=== PATIENT | female | born 2005 | race African-American/Black ===

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

== ENCOUNTER 2024-04-04 15:38 | Emergency (ER) | payer OTHER ==
[~2024-04-04] VITALS: Ht 160 cm; Wt 46.7 kg
[2024-04-04 15:56] VITALS: BP 103/65; PULSE 73; RESP 18; TEMP 98.9; O2SAT 10
[2024-04-04 17:37] LABS: APPEARANCE,URINE CLEAR (CLEAR); BILIRUBIN,URINE NEGATIVE (NEGATIVE); BLOOD, URINE NEGATIVE (NEGATIVE); COLOR,URINE YELLOW (YELLOW); LEUKOCYTE ESTERASE ,URINE NEGATIVE (NEGATIVE); NITRITE, URINE NEGATIVE (NEGATIVE); PH,URINE 6.5 (5.0-9.0); PROTEIN,URINE NEGATIVE (NEGATIVE); UGLUCOSE NEGATIVE (NEGATIVE); UROBILINOGEN,URINE 0.2 EU/dL (0.2 - 1)
[2024-04-04] MEDS ORDERED: MICO2CRE70 VG (17:57)
[2024-04-04 18:05] VITALS: BP 104/60; PULSE 81; RESP 18; TEMP 98; O2SAT 100
== END 2024-04-04 18:05 | disposition home or self-care (01) ==
LOC: MED 15:38
DX: B37.31 Acute candidiasis of vulva and vagina (principal); Z79.899 Other long term (current) drug therapy
CPT/HCPCS: 81003; 81025; 87070; 87075; 87205; 87210; 87491; 99284